=== PATIENT | male | born 1980 | race Caucasian/White ===

== ENCOUNTER 2017-05-22 12:59 | Emergency (ER) | payer BC ==
[~2017-05-22 12:59] MED LIST: AMOXICILLIN875 MG PO; FLONASE 0.05% N16 G1; SUDAFED PO
== END 2017-05-22 15:36 | disposition home or self-care (01) ==
LOC: SED 12:59
DX: R51 Headache (principal); F17.210 Nicotine dependence, cigarettes, uncomplicated; Z88.5 Allergy status to narcotic agent
CPT/HCPCS: 96372; 99284; J0780